=== PATIENT | male | born 1960 | race Caucasian/White ===

== ENCOUNTER 2019-07-31 16:33 | Inpatient (IN) | payer OTHER, SELFPAY ==
[2019-07-31] VITALS (13 sets, daily range): BP systolic 122–179; BP diastolic 60–111; PULSE 70–142; RESP 13–18; TEMP 36.8–36.9; O2SAT 94–97; BMI 38.2
--- NOTE | ~2019-07-31 | XR_ITS ---
EXAMINATION: XR chest 1V portable DATE: 07/31/2019 17:15 INDICATION: Chest pain and shortness of breath. TECHNIQUE: A single frontal view of the chest was obtained. COMPARISON: CT abdomen and pelvis 10/10/2011 FINDINGS: The chest demonstrates clear lungs without pneumonia, pleural effusion, or pneumothorax. Th e heart size is normal. IMPRESSION: 1. No acute cardiopulmonary disease. Reviewed, dictated and finalized at location A.
--- NOTE | 2019-07-31 16:36 | ECG_ITS ---
Measurements Intervals [place] Rate: 78 P: 60 WI: 170 QRS: 31 QRSD: 94 T: 56 QT: 344 QTc: 393 Interpretive Statements SINUS RHYTHM SUBTLE ST ELEVATION IN ANTEROSEPTAL LEADS NONSPECIFIC ST & T-WAVE ABNORMALITY- INF/LAT LEADS BASELINE WANDER- II, III, AVF, V6 BORDERLINE ECG Electronically Signed On 07-31-2019 18:58:58 CDT by Francisco Cordero D.O.
--- NOTE | 2019-07-31 16:42 | ED.CHESTPAIN ---
HPI - Chest Pain General Chief Complaint: Chest Pain Stated Complaint: chest pain Time Seen by Provider: 07/31/19 16:41 Source: patient and RN notes reviewed Mode of arrival: ambulatory Limitations: no limitations History of Present Illness HPI narrative: Pt is a 58 y/o male who presents to the ED with c/o lt sided chest pain starting roughly 1 week ago. 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 Pt notes that his pain has aggravated within the past 24 hours. He states that his pain is worsened with exertion, noting that his pain aggravated after walking this afternoon. Pt describes his pain as stabbing. He states that his pain radiates into his back and down into his lt bicep. Pt reports nausea accompanying his pain, but denies any diaphoresis, SOB, ABD pain, LE edema, calf pain, cough, fever, congestion, or numbness/tingling. He notes that he has a Hx of HLD, but states that he hasn't taken any medications for awhile following a previous weight loss. No history of diabetes. No history of smoking. Patient is scheduled for cardiac stress test, but has no history of having one. Pt notes that he recently traveled home from [place] via airplane. No known recent sick contacts. No myalgias, fatigue, rhinorrhea, congestion, cough. MD complaint: chest pain Onset (ago): week(s) (1) Timing of current episode: episodic Onset: during exertion Pain location: left chest Pain radiation: left arm and back Quality: other (stabbing) Exacerbating factors: exertion Associated symptoms: nausea Treatment prior to arrival: none Related Data Allergies Allergy/AdvReac Type Severity Reaction Status Date / Time No Known Allergies Allergy Verified 04/17/19 12:58 Review of Systems Review of Systems: Narrative: CONSTITUTIONAL: Denies fever, chills, or sweats. ENT: Denies rhinorrhea, congestion, sore throat, or otalgia. CARDIOVASCULAR: Reports lt sided chest pain radiating into back and lt arm. Denies palpitations or LE edema. RESPIRATORY: Denies cough or dyspnea. GASTROINTESTINAL: Denies abdominal pain, vomiting, or diarrhea. Reports nausea. MUSCULOSKELETAL: Denies back pain, joint pain, or calf pain. NEUROLOGIC: Denies headache, numbness/tingling, or weakness. All systems reviewed & are unremarkable except as noted in HPI and below PMFSH Past Medical History Medical History (Updated 07/31/19 @ 17:06 by Meliza Guzman MD) Arthritis Eczema HLD (hyperlipidemia) Seasonal allergies Surgical History Surgical History History of hip surgery (~2004) History of knee surgery (~1978) History of knee surgery (~1979) History of knee surgery (~1984) History of knee surgery (~1985) History of knee surgery (~2012) Social History Social History Smoking status: Never smoker Alcohol intake: current Exam Narrative: Exam Narrative: GENERAL: Well-appearing, well-nourished, and in no acute distress. HEAD: Normocephalic, atraumatic. EYES: PERRLA and EOMI. ENT: Nares clear, no rhinorrhea or epistaxis. Mucous membranes moist. NECK: Supple. CHEST: Clear to auscultation. No respiratory distress. Lt chest wall tenderness. HEART: Regular rate and rhythm. No murmur heard. Normal peripheral pulses. ABDOMEN: Soft, nontender, nondistended, normal active bowel sounds. EXTREMITIES: Normal range of motion. No edema. SKIN: Warm, dry, no rash. NEURO: No focal deficits. Alert and oriented. Course Course Emergency Course: Patient presented to the emergency department for evaluation of chest pain. At the time of initial assessment, ABCs are intact and vital signs are stable. While I was interviewing the patient, I turned out and asked the nurse to get a repeat EKG when the patient suddenly went into V. fib on the monitor and lost consciousness. CPR was immediate
--- NOTE | 2019-07-31 16:50 | PC.NURSE ---
300 bolus of amiodorone given per verbal order by Dr. Guzman
[2019-07-31] MEDS: TICAGRELOR 90 MG TABLET 180 MG (16:55)
[2019-07-31] MEDS: AMIODARONE 150 MG/D5W 100 ML 150 MG/100 ML BAG 600 MG IV CONT (16:55)
[2019-07-31] MEDS: HEPARIN SODIUM, PORCINE 10,000 UNITS/10 ML VIAL 4000 UNITS IV PUSH (16:55)
[2019-07-31 17:01] LABS: Basophils Absolute Auto 0.1 K/mm3 (0.0-0.1); Basophils Percent Auto 0.7 % (0.2-1.2); Eosinophils Absolute Auto 0.3 K/mm3 (0-0.3); Eosinophils Percent Auto 2.4 % (0-4.4); Hematocrit 51.7 % (42.0-52.0); Hemoglobin 16.5 g/dL (14.0-18.0); Immature Granulocyte Absolute 0.03 K/mm3 (0.00-0.031); Immature Granulocyte Percent A 0.3 % (0-0.5); Lymphocytes Absolute Auto 2.01 K/mm3 (0.9-3.2); Lymphocytes Percent Auto 19.1 % (18.3-44.2); Mean Corpuscular HGB Conc 31.9 g/dl (32-36); Mean Corpuscular Hemoglobin 30.1 pg (26-34); Mean Corpuscular Volume 94.3 fl (80-100); Mean Platelet Volume 9.5 fl (7.4-10.4); Monocytes Absolute Auto 0.8 K/mm3 (0.1-0.6); Monocytes Percent Auto 7.6 % (2.6-8.5); Neutrophils Absolute Auto 7.3 K/mm3 (1.3-6.7); Neutrophils Percent Auto 69.9 % (45.5-73.1); Platelet Count Result 293 k/mm3 (150-375); Red Blood Count 5.48 M/mm3 (4.6-6.20); Red Cell Distribution Width 12.3 % (11.5-14.5); White Blood Count 10.5 K/mm3 (4.5-10.0)
[2019-07-31 17:11] LABS: INR 0.9; Prothrombin Time 12.3 Seconds (11.1-14.7)
[2019-07-31] MEDS: MAGNESIUM SULF 2 GM/WATER 50ML 2 GM/50 ML BAG IVPB (17:11)
[2019-07-31 17:12] LABS: Partial Thromboplastin Time 25.2 SECONDS (22.3-36.8)
--- NOTE | 2019-07-31 17:16 | PC.NURSE ---
At 1645 pt HR went to v fib on in room monitor, pt became unresponsive. 1645 compressions were started, 1646 ambubag began, ER MD at bedside, 1647 pt had moaning sounds but CPR continued due to provider deeming HR was not a perfusing rhythm, 1647 pads were placed on pt and 200 j shcok delivered, 1647 compressions continued, 1648 a second shock 300 j, at 1648 a pulse was felt and pt was responding to questions, no compressions were resumed.1650 300 bolus of amiodorone given, 1652 nonrebreather was placed on patient, 1655 amiodorone hanging, 165 4,00 of heparin was given, 1659 25 of fentanyl was given, 1711 magnesium drip started. RNs remianed at bedside while awaiting cardiologost
[2019-07-31 17:27] LABS: Blood Urea Nitrogen 22 mg/dL (9-20); Carbon Dioxide 23 mmol/L (22-30); Chloride 105 mmol/L (98-107); Estimated CRCL calculation 87 ml/min; Estimated Glomerular Filt Rate > 60; Glucose 107 mg/dL (75-110); Sodium 138 mmol/L (137-145)
--- NOTE | 2019-07-31 17:29 | PC.NURSE ---
Rt switched nonrebreather to nasal canula, 2L oxygen saturation remaiined 98%
[2019-07-31 17:36] LABS: NT Pro B Type Natriuretic Pept 60 PG/ML (5-100); Troponin I 0.017 ng/mL (0.000-0.034)
--- NOTE | 2019-07-31 18:03 | PC.NURSE ---
Liset Shruthi [phone]
--- NOTE | 2019-07-31 18:20 | ECG_ITS ---
Measurements Intervals [place] Rate: 111 P: [place]: 0 QRS: 28 QRSD: 88 T: -41 QT: 310 QTc: 422 Interpretive Statements ATRIAL FIBRILLATION WITH RAPID VENTRICULAR RESPONSE ANTEROSEPTAL ST ELEVATION MYOCARDIAL INFARCT- ACUTE RECIPROCAL ST DEPRESSION IN INFERIOR LEADS ABNORMAL ECG Electronically Signed On 08-01-2019 7:03:12 CDT by Francisco Cordero D.O.
--- NOTE | 2019-07-31 18:41 | WPDCARDPROC ---
Cardiac Cath Procedure Note Date of procedure:: 07/31/19 Performing physician:: Onur Ortega MD Indication:: Acute coronary syndrome -anterior ST-elevation myocardial infarction Procedure Access site:: right common femoral artery Procedure note:: EMERGENT CARDIAC CATHETERIZATION AND PERCUTANEOUS CORONARY INTERVENTION REPORT DATE OF PROCEDURE: 07/31/2019 INDICATION FOR PROCEDURE: Acute coronary syndrome -anterior ST-elevation myocardial infarction ; VFib cardiac arrest in the setting of acute PA BRIEF CLINICAL HISTORY: 58-year-old male with no known prior cardiac history was brought to [facility] with worsening chest pain. Patient states that he has been experiencing chest discomfort for about a week. He reported that he recently saw a information assurance specialist and was supposed to go an outpatient stress test. Today, his symptoms got worse and he came to the [facility]. He reported chest pain with shortness of breath. his initial EKG at 4:40 p.m. showed sinus rhythm, nonspecific ST-T abnormalities. While patient was being evaluated in the ER, he went to VFib cardiac arrest and was resuscitated as per ACLS protocol and received 2 shocks as per ER physician. Subsequent EKG at 4:56 p.m. showed atrial fibrillation, with RVR; ST elevation in the precordial leads with reciprocal ST depression in the inferior leads. Cardiac catheterization lab was activated for PCI. PROCEDURES PERFORMED: 1. Left heart catheterization- Selective left and right coronary angiogram; left ventriculogram and hemodynamic assessment 2. Primary Percutaneous coronary intervention- Balloon angioplasty and stenting of subtotal stenosis in the proximal-mid LAD using orsiro sirolimus 4.0 x 18 mm stent. 3. Selective right common femoral angiogram and deployment of Angio-Seal hemostatic device 4. Moderate sedation-CPT code 03265 MODERATE SEDATION: Midazolam 1 mg; fentanyl 25 mcg. Start time 1806 , Stop time 1833 ; Total [id number] time 30 minutes; Sidney Eid RN was trained observer for moderate sedation. ACCESS SITE: Right common femoral artery PROCEDURE NOTE: After obtaining informed consent, patient was emergently brought to catheterization lab and prepped and draped in a usual sterile manner. After local anesthesia with lidocaine, right common femoral artery access was taken with micropuncture needle followed by insertion of a 6 Ugandan sheath. Selective right coronary angiogram was performed using 5 Ugandan JR4 diagnostic catheter. Selective left coronary angiogram was performed using 6 Ugandan 3.5 CLS guide catheter. Orthogonal views were taken. After completion of intervention, 5 Ugandan pigtail catheter was advanced in the LV cavity and was flushed with normal saline. LV pressure measurement was performed. After this, left ventriculogram was performed. The catheter was flushed again, and gradient across the aortic valve was measured on the pullback of the catheter. Selective right common femoral angiogram was performed after PCI followed by successful deployment of Angio-Seal vascular closure device. Patient tolerated procedure well without any immediate procedure related complications. FINDINGS: LEFT MAIN CORONARY: the left main coronary artery is a large caliber vessel, no angiographic significant focal stenosis. LEFT ANTERIOR DESCENDING ARTERY: The LAD is a large caliber vessel in the proximal segment; subtotal 99% stenosis is seen at the junction of the proximal-mid segment at the origin of the septal advanced practice nurse; the vessel is medium caliber in the mid segment, tortuous, tapers distally and wraps LV apex. Diagonal branches are tortuous, medium-sized vessel without significant focal stenosis. LEFT CIRCUMFLEX ARTERY: Left circumflex artery is large-sized vessel, gives rise to small-sized OM 1 branch, medium-sized OM2 and OM3 branches which are tortuous without significant focal stenosis. RIGHT CORONARY ARTERY: The right coronary artery is a large akhil
--- NOTE | 2019-07-31 18:53 | PM.IMHP ---
H&P: HPI History of Present Illness Chief complaint: Stemi Narrative: Date of service-07/31/2019 chief complaint: Chest pain, off and on x1 week HPI:Serjio Hawkins is a 58 year old male with no known Cardiac history presented to [facility] emergency room with complaints of worsening chest discomfort, that started about 1 week ago. Patient states that he has been experiencing chest discomfort for about 1 week. He recently saw a shuttle inspector in the outpatient cardiology clinic, and was scheduled to undergo outpatient stress test. Today, patient's symptoms of chest pain got worse associated with shortness of breath. He denies any palpitations, dizziness or syncope. His initial EKG in the emergency room at 16 40 showed sinus rhythm, nonspecific ST-T abnormality. While patient was being evaluated in the ER, he went into VFib cardiac arrest, and was resuscitated as per ACLS protocol, and received 2 shocks as per ER physician. Subsequent EKG at 4:56 p.m. showed atrial fibrillation with RVR, ST segment elevation in the anterior leads with ST depression in the inferior leads. Cardiac catheterization lab was activated for primary PCI. Patient's emergent coronary angiogram showed subtotal occlusion in the proximal-mid LAD which is infarct-related vessel; no other significant coronary disease was seen. He underwent successful PCI/stenting of proximal-mid LAD using a 4.0 x 18 mm sirolimus eluting stent. Review of Systems Constitutional: Constitutional: Denies chills, Denies fatigue, Denies fever(s) and Denies headache(s) Eyes: Eyes: Reports as per HPI, Denies change in vision, Denies loss of vision and Denies eye pain ENT: Reports as per HPI, Reports Normal hearing present, Denies headache(s), Denies lip swelling, Denies epistaxis and Denies sore throat Cardiovascular: Cardiovascular: Reports as per HPI, Reports chest pain, Denies syncope, Denies lightheadedness and Denies dyspnea Respiratory: Respiratory: Reports as per HPI, Denies cough, Reports dyspnea and Denies wheezing Gastrointestinal: Gastrointestinal: Reports as per HPI, Denies abdominal pain, Denies melena, Denies nausea and Denies vomiting Genitourinary: Genitourinary: Reports as per HPI Musculoskeletal: Musculoskeletal: Reports as per HPI, Denies myalgias, Denies muscle cramps and Denies muscle weakness Integumentary/Breasts: Skin/Breast: Reports as per HPI, Denies pruritus and Denies rash Neurologic: Reports as per HPI, Reports Normal hearing present, Denies behavioral changes, Denies syncope, Denies headache(s) and Denies loss of vision Psychiatric: Psychiatric: Reports as per HPI, Denies anxiety, Denies behavioral changes and Denies depression Endocrine: Endocrine: Reports as per HPI, Denies fatigue, Denies polydipsia and Denies polyuria Hematologic/Lymphatic: Hematologic/Lymphatic: Reports as per HPI, Denies easy bleeding and Denies easy bruising Allergic/Immunologic: Allergic/Immunologic: Reports as per HPI, Denies lip swelling and Denies wheezing PMFSH Past Medical History Medical History Arthritis Eczema HLD (hyperlipidemia) Seasonal allergies Surgical History Surgical History History of hip surgery (~2004) History of knee surgery (~1978) History of knee surgery (~1979) History of knee surgery (~1984) History of knee surgery (~1985) History of knee surgery (~2012) Family History Family History Father Hypertension Other Family history of coronary artery disease Social History Social History Smoking status: Never smoker Alcohol intake: current Meds Home Medications and Allergies Allergies Allergy/AdvReac Type Severity Reaction Status Date / Time No Known Allergies Allergy Verified 04/17/19 12:58 Vital Signs Vital Signs - 24 hr
[2019-07-31] MEDS: NITROGLYCERIN/D5W 200 MCG/ML 50 MG/250 ML BTL 6 MG IV CONT (19:45)
[2019-07-31] MEDS: SODIUM CHLORIDE 0.9% IV 1,000 ML 125 ML IV CONT (20:45)
[2019-07-31] MEDS: ATORVASTATIN 40 MG TABLET 80 MG PO (20:46)
[2019-07-31] MEDS: TICAGRELOR 90 MG TABLET PO (20:56)
--- NOTE | 2019-07-31 22:46 | ADMGEN ---
This patient, Serjio Hawkins, was admitted to Intensive Care Unit-5. Patient/family oriented to hospital policies and general routines including ID bracelet, bed and alarms, visiting hours, pain management, procedures, bathroom and other care routines, personal items, smoking policy, room service/diet, and visiting hours. Valuables list has been completed. Information on how to activate the Rapid Response Team has been discussed. Patient/Family are encouraged to report perceived risks to care and to ask questions if they do not understand what they are told or what they should do.
[2019-08-01] VITALS (20 sets, daily range): BP systolic 114–160; BP diastolic 71–98; PULSE 63–95; RESP 12–21; TEMP 36.4–37.1; O2SAT 93–97
[2019-08-01 04:54] LABS: Basophils Percent Auto 0.4 % (0.2-1.2); Eosinophils Absolute Auto 0.1 K/mm3 (0-0.3); Eosinophils Percent Auto 0.6 % (0-4.4); Hematocrit 46.6 % (42.0-52.0); Hemoglobin 15.3 g/dL (14.0-18.0); Immature Granulocyte Absolute 0.03 K/mm3 (0.00-0.031); Immature Granulocyte Percent A 0.3 % (0-0.5); Lymphocytes Absolute Auto 1.09 K/mm3 (0.9-3.2); Lymphocytes Percent Auto 9.8 % (18.3-44.2); Mean Corpuscular HGB Conc 32.8 g/dl (32-36); Mean Corpuscular Hemoglobin 30.1 pg (26-34); Mean Corpuscular Volume 91.6 fl (80-100); Mean Platelet Volume 9.4 fl (7.4-10.4); Monocytes Absolute Auto 0.9 K/mm3 (0.1-0.6); Monocytes Percent Auto 8.4 % (2.6-8.5); Neutrophils Percent Auto 80.5 % (45.5-73.1); Platelet Count Result 267 k/mm3 (150-375); Red Blood Count 5.09 M/mm3 (4.6-6.20); Red Cell Distribution Width 12.1 % (11.5-14.5); White Blood Count 11.1 K/mm3 (4.5-10.0)
[2019-08-01 05:03] LABS: Alanine Aminotransferase 57 U/L (4-50); Albumin Level 3.8 g/dL (3.5-5.1); Alkaline Phosphatase 50 U/L (38-126); Aspartate Amino Transferase 108 U/L (17-59); Bilirubin,Total 0.7 mg/dL (0.2-1.3); Blood Urea Nitrogen 16 mg/dL (9-20); Calcium 8.2 mg/dL (8.4-10.2); Carbon Dioxide 22 mmol/L (22-30); Chloride 106 mmol/L (98-107); Cholesterol 204 mg/dL (0-200); Estimated CRCL calculation 104 ml/min; Estimated Glomerular Filt Rate > 60; Glucose 140 mg/dL (75-110); HDL Direct 30 mg/dL; Potassium 4.1 mmol/L (3.4-5.0); Sodium 136 mmol/L (137-145); Triglycerides 147 mg/dL (<150)
[2019-08-01 05:14] LABS: LDL Cholesterol Direct 139 mg/dL
[2019-08-01] MEDS: METOPROLOL SUCCINATE EXT REL 25 MG TABCR PO (08:11)
[2019-08-01] MEDS: TICAGRELOR 90 MG TABLET PO ×2 (08:12→20:19)
[2019-08-01] MEDS: ASPIRIN 81 MG ENTERIC TABLET PO (08:12)
[2019-08-01] MEDS: LOSARTAN POTASSIUM 25 MG TABLET PO (08:12)
[2019-08-01] MEDS: ATORVASTATIN 40 MG TABLET 80 MG PO (08:12)
--- NOTE | 2019-08-01 11:22 | PCDIET ---
ICU Rounding Note: Pt current nutrition is Heart Healthy. Nutrition recommendation: Continue with heart healthy diet. Last recorded weight is 131.4 kg. Bowel Motility:none documented Labs Reviewed: Na 136, Glu 107-140, Chol 204 Meds Noted:Porter Additional Notes: Pt had heart cath yesterday (07/30). Pt eating well per RN. No additional concerns at this time, will provide education as appropriate. Following daily in ICU rounds.
--- NOTE | 2019-08-01 12:09 | PM.PNCARD ---
Progress Note: A&P Assessment and Plan (1) ST elevation (STEMI) myocardial infarction: Qualifiers: Involved coronary artery: LAD coronary artery Qualified Code(s): I21.02 - ST elevation (STEMI) myocardial infarction involving left anterior descending coronary artery Code(s): I21.3 - ST elevation (STEMI) myocardial infarction of unspecified site Status: Acute Assessment and Plan: Asymptomatic, recovering well. Status post 4.0 x 18 mm drug-eluting stent to LAD infarct related vessel. No other significant obstructive CAD noted. EF preserved 55%. Aggressive medical therapy. Continue aspirin, Ticagrelor, BB, high intensity statin, ARB. DVT prophylaxis. Wean NTG gtt off reducing to 10 then stopping if SBP <160mmHg. May transfer to IMU today. If no issues anticipate discharge home around 48 hours. If any significant ventricular arrhythmias recommendations to follow. Reviewed post catheterization precautions, high risk. Particularly the next 24-48 hours as well as the next 30 days. Discussed in detail in conjunction with risks associated with current COVID-19 pandemic. Counseled patient to isolate himself/family and to take additional precautions per CDC guidelines. He will notify the office immediately and his primary care physician should he develop any symptoms suggestive of coronavirus infection particularly cough or fever. Patient verbalized understanding and agreed with plan of care. Reviewed the absolute importance of compliance with medications particularly dual antiplatelet therapy with out missing a single dose due to risk for AR and/or potential . 2D echocardiogram. (2) Ventricular fibrillation: Code(s): I49.01 - Ventricular fibrillation Status: Acute Assessment and Plan: Secondary to acute ST-elevation myocardial infarction with LAD as infarct-related vessel. Continue telemetry. Beta-elba. (3) HTN (hypertension): Code(s): I10 - Essential (primary) hypertension Status: Acute Assessment and Plan: BP stable. Wean nitroglycerin drip. Continue ARB and Toprol XL. Monitor BP. (4) Dyslipidemia: Code(s): E78.5 - Hyperlipidemia, unspecified Status: Acute Assessment and Plan: High-intensity statin, goal LDL less than 70. LDL 139 presently. Continue atorvastatin 80 mg daily. (5) Atrial fibrillation: Code(s): I48.91 - Unspecified atrial fibrillation Status: Acute Assessment and Plan: Transient episode of AFib with RVR post VF arrest and resuscitation. No indication for systemic anticoagulation unless significant recurrence. Continue monitoring coordinator. Subjective Date/time seen: Date of service: 08/01/19 12:09 Follow-up for VF arrest and anterior ST-elevation myocardial infarction No issues overnight. No recurrent VT/VF. No atrial fibrillation. No chest pain, shortness of breath other than chest wall discomfort from CPR. Denies right leg pain. No fevers, chills, cough or myalgias. Patient reports recent travel to [place] having walked around [place] for several hours. No one else in his house is reported ill and he denies known sick contacts. He has not met criteria for COVID-19 testing per most recent CDC guidelines. Review of Systems Review of Systems: All systems reviewed & are unremarkable except as noted in HPI and below Constitutional: Constitutional: Reports as per HPI and Reports no additional constitutional complaints Eyes: Eyes: Reports as per HPI and Reports no additional eye complaints ENT: Reports system reviewed and no additional complaints, except as documented and Reports as per HPI Cardiovascular: Cardiovascular: Reports as per HPI and Reports no additional cardiovascular complaints Respiratory: Respiratory: Reports as per HPI and Reports no additional respiratory complaints Gastrointestinal: Gastrointestinal: Reports as per HPI and Reports no additional gastrointestina
--- NOTE | 2019-08-01 12:23 | WPDCNINT ---
Assessment and Plan Assessment and plan (1) ST elevation (STEMI) myocardial infarction: Qualifiers: Involved coronary artery: LAD coronary artery Qualified Code(s): I21.02 - ST elevation (STEMI) myocardial infarction involving left anterior descending coronary artery Code(s): I21.3 - ST elevation (STEMI) myocardial infarction of unspecified site Status: Acute Assessment and Plan: patient presented with chest pain, EKG showed ST-elevation in anterior leads, patient taken to the [facility] where was found to have 99% proximal- mid LAD stenosis status post RIGOBERTO x1 to the culprit vessel. - EF was preserved at 55%. - Cardiology following the patient closely - continue aspirin Brilinta, beta-elba, statin, losartan (2) Ventricular fibrillation: Code(s): I49.01 - Ventricular fibrillation Status: Acute Assessment and Plan: likely related to acute ST-elevation [place]. Continue beta-blockers in telemetry (3) HTN (hypertension): Code(s): I10 - Essential (primary) hypertension Status: Acute Assessment and Plan: patient on nitroglycerin infusion, blood pressures have been stable, restarted ARB and metoprolol XL, monitor BP, will wean nitroglycerin infusion to off (4) Dyslipidemia: Code(s): E78.5 - Hyperlipidemia, unspecified Status: Acute Assessment and Plan: continue high intensity statin Additional Plan discussed with patient updated with his condition and plan of care. I answered all questions. discussed with cardiology code status: Full code Critical care time spent 38 minutes Messenger Copy Consult Note Consult date: 08/01/19 Time Seen: 07:01 Reason for consult: STEMI, s/p PCI with RIGOBERTO x1 of 99% stenosis of proximal-mid LAD HPI: Serjio Hawkins is a 58 year old male h/o HLD, arthritis presented to the ED with chest pain for 1 week. 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 On the day of admission his chest pain got worse and was associated with SOB. . He denies any palpitations, dizziness or syncope. His initial EKG in the emergency room at 16 40 showed sinus rhythm, nonspecific ST-T abnormality. While patient was being evaluated in the ER, he went into VFib cardiac arrest, and was resuscitated as per ACLS protocol, and received 2 shocks as per ER physician. Subsequent EKG at 4:56 p.m. showed atrial fibrillation with RVR, ST segment elevation in the anterior leads with ST depression in the inferior leads. Pt was [facility] where he had RIGOBERTO x1 to prox-mid LAD. Pt seen and examined this morning. denies any chest pain, shortness of breath, nausea, vomiting. Patient is a nitroglycerin drip elevated blood pressures. Patient was started on home medication. nitroglycerin infusion being weaned. Urine output has been adequate Review of Systems Review of Systems: All systems reviewed & are unremarkable except as noted in HPI and below PMFSH Past Medical History Medical History Arthritis Eczema HLD (hyperlipidemia) Seasonal allergies Surgical History Surgical History History of hip surgery (~2004) History of knee surgery (~1978) History of knee surgery (~1979) History of knee surgery (~1984) History of knee surgery (~1985) History of knee surgery (~2012) Family History Family History Father Hypertension Other Family history of coronary artery disease Social History Social History Smoking status: Never smoker Alcohol intake: current Drinks per week: 1 Substance use: never Gender identity (if verbalized by the patient): Male Spiritual care concerns: No Agree to blood products: Yes Meds Home Medications and Allergies Home Medications Medication Instru
--- NOTE | 2019-08-01 12:24 | ECHO_ITS ---
Patient Info Name: Serjio Hawkins Age: 58 years : 1960 Gender: Male Ht: 73 in Wt: 290 lbs BSA: 2.65 m2 HR: 78 bpm BP: 138 / 80 mmHg Heart Rhythm: Sinus Rhythm Technical Quality: Poor Exam Date: 08/01/2019 1:26 PM Exam Location: [facility] Pulmonary Exam Room: [place] [address] Patient Status: Inpatient Admit Date: 07/31/2019 Staff Ordering Physician: Galen Enriquez MD Umbrella Frame Maker: Yvonne Ramirez RCS Attending Provider: Onur Ortega MD Exam Type: CA echo dop color flow w con Study Info Indications - stemi cath lad stent Complete two-dimensional, color flow and Doppler transthoracic echocardiogram is performed with contrast to opacify the left ventrical and to improve the deliniation of the left ventrical endocarial boarders. Reason for Poor Study: patient body habitus Summary 1. Technically difficult study with limited views. Definity contrast enhancement utilized without clearly identified wall motion abnormalities. 2. There is no increased left ventricular wall thickness. Asymmetric septal hypertrophy. 3. Left ventricular systolic function is normal, estimated at 55-60%. 4. The left ventricular diastolic function is grade I diastolic dysfunction. 5. Right atrial chamber dimension is mildly enlarged. 6. There is no aortic valve stenosis. 7. There is trace mitral valve regurgitation. 8. No pulmonary hypertension, estimated pulmonary arterial systolic pressure is 35 mmHg. 9. There is trace tricuspid valve regurgitation. Left Ventricle Left ventricular chamber dimension is normal. Left ventricular systolic function is normal, estimated at 55-60%. There is no increased left ventricular wall thickness. Asymmetric septal hypertrophy. The left ventricular diastolic function is grade I diastolic dysfunction. Technically difficult study with limited views. Definity contrast enhancement utilized without clearly identified wall motion abnormalities. Right Ventricle Right ventricular chamber dimension is normal. Right ventricular systolic function is normal. Left Atria Left atrial chamber dimension is normal. Right Atria Right atrial chamber dimension is mildly enlarged. Aortic Valve The aortic valve is not well visualized. There is no aortic valve stenosis. There is no aortic valve regurgitation. Pulmonic Valve The pulmonic valve is not well visualized. Mitral Valve The mitral valve has normal leaflets. There is trace mitral valve regurgitation. Tricuspid Valve The tricuspid valve leaflets are not well visualized. There is trace tricuspid valve regurgitation. No pulmonary hypertension, estimated pulmonary arterial systolic pressure is 35 mmHg. Pericardium/Pleural The pericardium appears not well visualized. There is no pericardial effusion. Inferior Vena Cava Normal inferior vena cava with >50% collapse upon inspiration consistent with normal right atrial pressure, 5 mmHg. Aorta The aortic root size at the sinus of Valsalva is normal. Left Ventricular Outflow Tract Name Value Normal LVOT 2D LVOT Diameter 2.10 cm LVOT Doppler LVOT Peak Gradient 5 mmHg
[2019-08-01] MEDS: PERFLUTREN LIPID MICROSPHERES 1.5 ML VIAL DILUTED TO 10 ML TOTAL VOLUME IV PUSH (14:06)
[2019-08-01 14:38] LABS: Magnesium 2.2 mg/dL (1.6-2.3)
[2019-08-01 14:40] LABS: Potassium 3.8 mmol/L (3.4-5.0)
[2019-08-01] MEDS: POTASSIUM CHLORIDE 20 MEQ TABLET PO (15:07)
[2019-08-01] MEDS: ACETAMINOPHEN 500 MG TABLET 1000 MG PO (23:47)
[2019-08-02] VITALS (10 sets, daily range): BP systolic 122–145; BP diastolic 70–83; PULSE 66–91; RESP 15–22; TEMP 36.4–36.8; O2SAT 96–99
[2019-08-02 04:41] LABS: Blood Urea Nitrogen 14 mg/dL (9-20); Calcium 8.7 mg/dL (8.4-10.2); Carbon Dioxide 23 mmol/L (22-30); Chloride 107 mmol/L (98-107); Estimated CRCL calculation 88 ml/min; Estimated Glomerular Filt Rate > 60; Glucose 115 mg/dL (75-110); Potassium 4.1 mmol/L (3.4-5.0); Sodium 136 mmol/L (137-145)
[2019-08-02] MEDS: ASPIRIN 81 MG ENTERIC TABLET PO (08:22)
[2019-08-02] MEDS: ATORVASTATIN 40 MG TABLET 80 MG PO (08:22)
[2019-08-02] MEDS: METOPROLOL SUCCINATE EXT REL 25 MG TABCR PO (08:23)
[2019-08-02] MEDS: LOSARTAN POTASSIUM 25 MG TABLET PO (08:23)
[2019-08-02] MEDS: TICAGRELOR 90 MG TABLET PO (08:26)
--- NOTE | 2019-08-02 12:50 | PM.PNCARD ---
Progress Note: A&P Assessment and Plan (1) ST elevation (STEMI) myocardial infarction: Qualifiers: Involved coronary artery: LAD coronary artery Qualified Code(s): I21.02 - ST elevation (STEMI) myocardial infarction involving left anterior descending coronary artery Code(s): I21.3 - ST elevation (STEMI) myocardial infarction of unspecified site Status: Acute Assessment and Plan: Asymptomatic, recovering well. Status post 4.0 x 18 mm drug-eluting stent to LAD infarct related vessel. No other significant obstructive CAD noted. EF preserved 55%. Aggressive medical therapy. Continue aspirin, Ticagrelor, BB, high intensity statin, ARB. DVT prophylaxis. Should he have no recurrent ventricular arrhythmias plan to discharge home this evening to follow up as an outpatient. Patient will determine if he wishes to follow with our practice or with Dr. Dobbins. He will notify the office immediately and his primary care physician should he develop any symptoms suggestive of coronavirus infection particularly cough or fever. Patient verbalized understanding and agreed with plan of care. Reviewed the absolute importance of compliance with medications particularly dual antiplatelet therapy with out missing a single dose due to risk for AR and/or potential . (2) Ventricular fibrillation: Code(s): I49.01 - Ventricular fibrillation Status: Acute Assessment and Plan: Secondary to acute ST-elevation myocardial infarction with LAD as infarct-related vessel. Continue telemetry. Beta-elba. nonsustained VT within 24 hours after reperfusion no significant ventricular arrhythmias thus far subsequently. Will monitor while in-house. If any recurrent significant recurrence will monitor on telemetry for 1 more day. (3) HTN (hypertension): Code(s): I10 - Essential (primary) hypertension Status: Acute Assessment and Plan: BP stable. Continue ARB and Toprol XL. Monitor BP. (4) Dyslipidemia: Code(s): E78.5 - Hyperlipidemia, unspecified Status: Acute Assessment and Plan: High-intensity statin, goal LDL less than 70. LDL 139 presently. Continue atorvastatin 80 mg daily. (5) Atrial fibrillation: Code(s): I48.91 - Unspecified atrial fibrillation Status: Acute Assessment and Plan: Transient episode of AFib with RVR post VF arrest and resuscitation. No indication for systemic anticoagulation unless significant recurrence. Continue organ assembler. Subjective Date/time seen: Date of service:08/02/19 12:50 Follow-up for STEMI, VF arrest. Feeling well. No new issues overnight. Had 20 beat run of nonsustained VT yesterday afternoon in which he was symptomatic with the sense of a vibration in his chest.. PVC's and ventricular couplet this morning On telemetry asymptomatic. No chest pain, shortness of breath, palpitations, near-syncope or syncope or lightheadedness. Tolerating medications. Review of Systems Review of Systems: All systems reviewed & are unremarkable except as noted in HPI and below Constitutional: Constitutional: Reports as per HPI, Reports no additional constitutional complaints, Denies chills, Denies fatigue, Denies fever(s) and Denies headache(s) Eyes: Eyes: Reports as per HPI, Reports no additional eye complaints, Denies change in vision, Denies loss of vision and Denies eye pain ENT: Reports system reviewed and no additional complaints, except as documented, Reports as per HPI, Denies headache(s), Denies lip swelling, Denies epistaxis and Denies sore throat Cardiovascular: Cardiovascular: Reports as per HPI, Reports no additional cardiovascular complaints, Denies chest pain ( mild chest wall pain from CPR), Denies syncope, Denies lightheadedness, Denies palpitations and Reports dyspnea Respiratory: Respiratory: Reports as per HPI, Reports no additional respiratory complaints, Denies cough, Denies hemoptysis, Denies dys
--- NOTE | 2019-08-02 15:39 | PM.DS ---
DS: Diagnosis Admitting Diagnosis Admitting Diagnosis: ST elevation (STEMI) myocardial infarction involving left anterior descending coronary artery Discharge Diagnosis (1) ST elevation (STEMI) myocardial infarction: Qualifiers: Involved coronary artery: LAD coronary artery Qualified Code(s): I21.02 - ST elevation (STEMI) myocardial infarction involving left anterior descending coronary artery Code(s): I21.3 - ST elevation (STEMI) myocardial infarction of unspecified site Status: Acute Assessment and Plan: Asymptomatic, recovering well. Status post 4.0 x 18 mm drug-eluting stent to LAD infarct related vessel. No other significant obstructive CAD noted. EF preserved 55%. Aggressive medical therapy. Continue aspirin, Ticagrelor, BB, high intensity statin, ARB. DVT prophylaxis. Should he have no recurrent ventricular arrhythmias plan to discharge home this evening to follow up as an outpatient. Patient will determine if he wishes to follow with our practice or with Dr. Dobbins. He will notify the office immediately and his primary care physician should he develop any symptoms suggestive of coronavirus infection particularly cough or fever. Patient verbalized understanding and agreed with plan of care. Reviewed the absolute importance of compliance with medications particularly dual antiplatelet therapy with out missing a single dose due to risk for CT and/or potential . (2) Ventricular fibrillation: Code(s): I49.01 - Ventricular fibrillation Status: Acute Assessment and Plan: Secondary to acute ST-elevation myocardial infarction with LAD as infarct-related vessel. Continue telemetry. Beta-elba. nonsustained VT within 24 hours after reperfusion no significant ventricular arrhythmias thus far subsequently. Will monitor while in-house. If any recurrent significant recurrence will monitor on telemetry for 1 more day. (3) HTN (hypertension): Code(s): I10 - Essential (primary) hypertension Status: Acute Assessment and Plan: BP stable. Continue ARB and Toprol XL. Monitor BP. (4) Dyslipidemia: Code(s): E78.5 - Hyperlipidemia, unspecified Status: Acute Assessment and Plan: High-intensity statin, goal LDL less than 70. LDL 139 presently. Continue atorvastatin 80 mg daily. (5) Atrial fibrillation: Code(s): I48.91 - Unspecified atrial fibrillation Status: Acute Assessment and Plan: Transient episode of AFib with RVR post VF arrest and resuscitation. No indication for systemic anticoagulation unless significant recurrence. Continue panel monitor. DS: Summary Hospital Course Reason for hospitalization: VF arrest, anterior STEMI Hospital Course: Patient was admitted through the emergency department with chest pain subsequent suffered a VF arrest successfully resuscitated found to have anterior ST elevations were he was emergently taken to the cardiac catheterization lab and underwent percutaneous intervention and stent implantation of a subtotal LAD culprit vessel occlusion. Patient had transient atrial fibrillation after resuscitation for VF which spontaneously resolved without recurrence throughout hospitalization. Patient was observed for nearly 48 hours without complication. Patient had a 20 beat run of nonsustained ventricular tachycardia within the 1st 24 hours after his acute myocardial infarction but no further significant sustained or nonsustained ventricular tachycardia. we discussed this concern in detail and symptoms to monitor. If he begins to note vibrations in his chest, near-syncope, syncope, worsening shortness of breath and her chest pain to call EMS and report to ER immediately. Patient verbalized understanding. There are no complication at his right groin site which was soft without hematoma or bruit with 2+ distal pulses. Patient was discharged in stable and improved condition to follow up as an outp
== END 2019-08-02 17:10 | disposition home or self-care (01) | DRG 246 ==
LOC: ANHED 17:06 → ANHICU 17:17
PROVIDERS: Emergency Medicine; Nurse Practitioner Adult Health; Admitting Provider Internal Medicine Cardiovascular Disease; Emergency Provider Emergency Medicine; PCP Family Medicine; Visit Provider Internal Medicine Cardiovascular Disease
PROC: 4A023N7 Measurement of Cardiac Sampling and Pressure, Left Heart, Percutaneous Approach (ICD-10-PCS; CPT 93452; principal; 2019-07-31 17:00)
PROC: 027034Z Dilation of Coronary Artery, One Artery with Drug-eluting Intraluminal Device, Percutaneous Approach (ICD-10-PCS; 2019-07-31 17:00)
PROC: 027034Z Dilation of Coronary Artery, One Artery with Drug-eluting Intraluminal Device, Percutaneous Approach (ICD-10-PCS; 2019-07-31 17:00)
DX: I21.02 ST elevation (STEMI) myocardial infarction involving left anterior descending coronary artery (principal); I49.01 Ventricular fibrillation; I46.9 Cardiac arrest, cause unspecified; I47.2 Ventricular tachycardia; Z28.21 Immunization not carried out because of patient refusal; M19.90 Unspecified osteoarthritis, unspecified site; L30.9 Dermatitis, unspecified; E78.5 Hyperlipidemia, unspecified
CPT/HCPCS: 36415; 71045; 80048; 80053; 80061; 83735; 83880; 84132; 84484; 85025; 85610; 85730; 93005; 93458; 96365; 96375; 99291; A9270; C1725; C1760; C1769; C1874; C1887; C1894; C8929; C9606; G0269; J0171; J0282; J0360; J0583; J1644; J2250; J3010; J3475; J7030; Q9957

== ENCOUNTER → 2023-04-21 12:01 | Outpatient (REF) | payer OTHER, SELFPAY | LOC: ANHLAB 12:01 | PROVIDERS: PCP Family Medicine; Visit Provider Plastic Surgery | DX: R22.1 Localized swelling, mass and lump, neck (principal) | CPT/HCPCS: 88305 ==